=== PATIENT | female | born 1965 | race American Indian/Alaskan Native ===

== ENCOUNTER 2019-01-31 10:02 | Emergency (ER) | payer SELFPAY ==
[2019-01-31 10:13] VITALS: BP 128/83
== END 2019-01-31 10:15 | disposition left against medical advice (07) ==
LOC: ED 10:02
DX: R51 Headache (principal); M54.2 Cervicalgia; Z53.21 Procedure and treatment not carried out due to patient leaving prior to being seen by health care provider